=== PATIENT | male | born 1970 | race Hispanic/Latino ===

== ENCOUNTER 2024-06-14 15:22 | Emergency (ER) | payer SELFPAY ==
[2024-06-14] MEDS ORDERED: Sodium Chloride 0.9% 100 ML ONE (16:27)
[2024-06-14] MEDS ORDERED: CEFAZOLIN 2 GM VIAL ONE (16:27)
[2024-06-14] MEDS ORDERED: Morphine 4 MG/ML VIAL ONE (16:27)
[2024-06-14] MEDS ORDERED: Boostrix 0.5 ML (Tdap) VIAL (>/=7 yrs of age) ONE (16:28)
[2024-06-14] MEDS ORDERED: Lidocaine 1% PF 5 ML VIAL ONE (17:00)
[2024-06-14] MEDS ORDERED: Bacitracin 1 PK ONE ×2 (17:20→17:45)
== END 2024-06-14 18:03 | disposition home or self-care (01) ==
LOC: MADERS 15:22
DX: S62.623B Displaced fracture of middle phalanx of left middle finger, initial encounter for open fracture (principal); W23.1XXA Caught, crushed, jammed, or pinched between stationary objects, initial encounter; Z55.6 Problems related to health literacy; Z23 Encounter for immunization
CPT/HCPCS: 90471; 90715; 96365; 96375; J2272

== ENCOUNTER 2025-06-02 06:01 | Emergency (ER) | payer OTHER, SELFPAY ==
[2025-06-02] MEDS ORDERED: Lidocaine 1% PF 5 ML VIAL ONE (06:43)
[2025-06-02] MEDS ORDERED: Bacitracin 1 PK ONE (06:43)
[2025-06-02] MEDS ORDERED: Cephalexin 500 MG CAP ONE (07:36)
== END 2025-06-02 07:40 | disposition home or self-care (01) ==
LOC: MADERS 06:01
DX: S67.191A Crushing injury of left index finger, initial encounter (principal); S61.211A Laceration without foreign body of left index finger without damage to nail, initial encounter; F17.210 Nicotine dependence, cigarettes, uncomplicated; W23.1XXA Caught, crushed, jammed, or pinched between stationary objects, initial encounter; Y99.0 Civilian activity done for income or pay
CPT/HCPCS: 12042; 99283

== ENCOUNTER 2025-06-17 15:18 | Emergency (ER) | payer SELFPAY | END 2025-06-17 15:40 | disposition home or self-care (01) | LOC: MADERS 15:18 | DX: S61.211D Laceration without foreign body of left index finger without damage to nail, subsequent encounter (principal); F17.210 Nicotine dependence, cigarettes, uncomplicated ==